=== PATIENT | female | born 1990 ===

== ENCOUNTER 2016-12-29 20:15 | Emergency (ER) | payer MEDICAID ==
[2016-12-29 20:32] VITALS: BP 98/63; PULSE 78; TEMP 98.2; O2SAT 99
[2016-12-29] MEDS ORDERED: Albuterol 0.083% Inhal Sol (2.5 mg/3 mL) UD IH STA (20:56)
[2016-12-29] MEDS ORDERED: Amoxicillin-Clav 875-125 mg Tab PO STA (20:57)
[2016-12-29] MEDS ORDERED: Amoxicillin-Clav 875-125 mg Tab PO ONE (21:10)
[2016-12-29] MEDS ORDERED: Albuterol 0.083% Inhal Sol (2.5 mg/3 mL) UD ONE (21:14)
[2016-12-29 21:24] LABS: RBC URINE 4 /hpf (0-3); URINE BACTERIA OCC (<OCC); URINE BILIRUBIN NEGATIVE (NEGATIVE); URINE BLOOD NEGATIVE (NEGATIVE); URINE COLOR Yellow (YELLOW); URINE GLUCOSE (UA) NORMAL (Normal); URINE KETONE NEGATIVE (NEGATIVE); URINE LEUKOCYTE ESTERASE 3+ Leu/uL (Negative); URINE PROTEIN NEGATIVE (NEGATIVE); URINE UROBILINOGEN NORMAL mg/dL (0.2-1.0); WBC URINE 39 /hpf (0-5)
--- NOTE | 2016-12-29 21:28 | C.PDOC ---
History Of Present Illness The patient, a 26 y/o female whose PMHx includes Asthma and is currently around 3 months , presents to the ED for evaluation of a frontal headache that is associated with chills and upper back pain intermittently for the past week. Patient admits to positive care with no complications in ; she reports her last Ultrasound was on December 14. Patient denies high fever, worse headache of life, visual changes, neck pain, sore throat, cough, chest pain, shortness of breath, abdominal pain, vomiting, vaginal bleeding/ irritation. Ambulate to ED for evaluation, not in any apparent distress. Time Seen by Provider: 12/29/16 20:46 Chief Complaint (Nursing): Headache History Per: Patient History/Exam Limitations: no limitations Onset/Duration Of Symptoms: Intermittent Episodes, Other (around 1 week ) Current Symptoms Are (Timing): Still Present Quality: Aching Preceeding Symptoms: None. denies: Visual Disturbances, Known Migraine Symptoms Associated Symptoms: denies: Photophobia, Blurred Vision, Nausea, Vomiting, Extremity Weakness Additional History Per: Patient Past Medical History Reviewed: Historical Data, Nursing Documentation, Vital Signs Vital Signs: Last Vital Signs Temp 98.2 F 12/29/16 20:29 Pulse 78 12/29/16 20:29 Resp 14 12/29/16 20:29 BP 98/63 L 12/29/16 20:29 Pulse Ox 99 12/29/16 21:30 - Medical History PMH: Asthma Surgical History: No Surg Hx Family History: States: Unknown Family Hx - Social History Hx Tobacco Use: No Hx Alcohol Use: No Hx Substance Use: No - Immunization History Hx Tetanus Toxoid Vaccination: No Hx Influenza Vaccination: No Hx Pneumococcal Vaccination: No Review Of Systems Except As Marked, All Systems Reviewed And Found Negative. Constitutional: Positive for: Chills. Negative for: Fever ENT: Negative for: Throat Pain Cardiovascular: Negative for: Chest Pain Respiratory: Negative for: Cough, Shortness of Breath Gastrointestinal: Negative for: Vomiting, Abdominal Pain Genitourinary: Negative for: Vaginal Discharge, Vaginal Bleeding, Other (no vaginal irritation ) Musculoskeletal: Positive for: Back Pain (upper) Neurological: Positive for: Headache Physical Exam - Physical Exam Appears: Well, Non-toxic, No Acute Distress Skin: Normal Color, Warm, Dry, No Rash Head: Atraumatic, Tenderness (mild, over frontal sinus . NO edema, no erythema.) Eye(s): bilateral: Normal Inspection, PERRL, EOMI Ear(s): Bilateral: Normal Nose: Other (+nasal congesiton bilaterally ) Oral Mucosa: Moist, No Drooling Tongue: Normal Appearing Lips: Normal Appearing Throat: Normal, No Erythema, No Exudate, No Drooling Neck: Normal, Normal ROM, Supple Chest: Symmetrical, No Deformity Cardiovascular: Rhythm Regular, No Murmur Respiratory: No Decreased Breath Sounds, No Accessory Muscle Use, No Rales, No Rhonchi, No Stridor, Wheezing (scattered, bibasilar ) Gastrointestinal/Abdominal: Normal Exam, Soft, No Tenderness, No Guarding, No Rebound Back: Normal Inspection, No CVA Tenderness, No Vertebral Tenderness, No Paraspinal Tenderness Extremity: Normal ROM, No Pedal Edema, Capillary Refill (less than 2 seconds) Neurological/Psych: Oriented x3, Normal Speech, Normal Cognition Gait: Steady ED Course And Treatment O2 Sat by Pulse Oximetry: 99 (on RA) Pulse Ox Interpretation: Normal Progress Note: Labs ordered and reviewed. Patient received Albuterol IH, Augmentin PO, and Prednisone PO. On re-evaluation, pt is afebrile, hemodynamicaly stable. Non-toxic. Tolerate Po well in ED. PulseOx 99% RA. ENT : no acute finidngs. Neck: (-) meningeal sign. Lungs: CTA B/L, BS equal B/L. Abd: benign. UA results review and c/w UTI. Pt ahsc linical findings c/w headache, UTI, asthma exacerbation, . Pt advised on course of ds. ref. to F/u with PMD and OB in 2-3 days for re-eavl. return to ED if nay worsening or new changes. Disposition Counseled Patient/Family Regarding: Studies Performed, Diagnosis, Need For Followup, Rx Given - [facility]position [facility] Disposition: HOME/ ROUTINE Disposition Time: 21:42 Condition: STABLE Additional Instructions: Encourage fluids Cranberry supplement Take medication as prescribed Follow up with PMD, OB on 2-3 days for re-evaluation. Return to ED if any worsening or new changes. Prescriptions: Prednisone [Deltasone] 20 mg PO DAILY #3 tablet Nitrofurantoin Macrocrystals [Macrobid] 1 cap PO BID #14 cap Albuterol HFA [Ventolin HFA 90 mcg/actuation (8 g)] 1 puff IH Q6 #1 inhaler Instructions: Urinary Tract Infection in (ED), Asthma (ED) - Clinical Impression Clinical Impression: UTI in , Exacerbation of asthma - PA / MANAGER METAL / Resident Statement MD/DO has reviewed & agrees with the documentation as recorded. - Scribe Statement The provider has reviewed the documentation as recorded by the Scribe (Lucero Quintana) All medical record entries made by the Scribe were at my direction and personally dictated by me. I have reviewed the chart and agree that the record accurately reflects my personal performance of the history, physical exam, medical decision making, and the department course for this patient. I have also personally directed, reviewed, and agree with the discharge instructions and disposition.
[2016-12-29 21:53] VITALS: RESP 20
== END 2016-12-29 21:52 | disposition home or self-care (01) ==
LOC: C.ER 20:15
DX: O23.41 Unspecified infection of urinary tract in pregnancy, first trimester (principal); O26.891 Other specified pregnancy related conditions, first trimester; J45.901 Unspecified asthma with (acute) exacerbation; R51 Headache; Z3A.00 Weeks of gestation of pregnancy not specified